=== PATIENT | female | born 1975 | race African-American/Black ===

== ENCOUNTER 2017-03-05 22:06 | Emergency (ER) | payer MEDICAID ==
[~2017-03-05] VITALS: Ht 160 cm; Wt 59.9 kg
[~2017-03-05 22:06] MED LIST: AZITHROMYCIN250 MG ORAL; CORTISPORIN EAR10 ML LEFT EAR; IBUPROFEN600 MG ORAL; NORCO 5-325 TA1 EACH ORAL; PREDNISONE
[2017-03-05] MEDS ORDERED: NKM (22:21)
[2017-03-05] MEDS ORDERED: ZYRTEC10 MG ORAL (22:31)
[2017-03-05] MEDS ORDERED: CORTISPORIN EAR10 ML OTIC (22:31)
[2017-03-05] MEDS ORDERED: AMOXICILLIN500 MG ORAL (22:31)
[2017-03-05] MEDS ORDERED: IBUPROFEN600 MG ORAL (22:31)
[2017-03-05 22:40] VITALS: BP 122/77
--- NOTE | 2017-03-06 03:54 | Emergency Room Report ---
History of Present Illness General Chief Complaint: Earache Source: Patient Present Illness HPI Patient presents with complaints of left ear pain Pain is 6/10 Denies any fevers She has pain with touching the ear Denies any fall or trauma denies any foreign body Denies any change with position Denies any change in hearing Denies any recent water contact Allergies: Coded Allergies: CODEINE (Verified Allergy, Unknown, 03/05/17) Patient History Past Medical History: see triage record Pertinent Family History: none Last Menstrual Period: 02/06/17 Now: No Reviewed Nursing Documentation: PMH: Agreed, PSxH: Agreed Nursing Documentation-PMH Past Medical History: No History, Except For Hx Cardiac Problems: No Hx Hypertension: No Hx Pacemaker: No Hx Asthma: No Hx COPD: No Hx Diabetes: No Hx Cancer: No Hx Gastrointestinal Problems: No Hx Dialysis: No Hx Neurological Problems: No Hx Cerebrovascular Accident: No Hx Seizures: No Review of Systems All Other Systems: negative except mentioned in HPI Physical Exam Vital Signs Date Time Temp Pulse Resp B/P Pulse Ox O2 Delivery O2 Flow Rate FiO2 03/05/17 22:17 98.1 73 16 122/77 97 Room Air Sp02 EP Interpretation: reviewed, normal General Appearance: well appearing, no apparent distress Head: normocephalic, atraumatic Eyes: bilateral eye EOMI, bilateral eye PERRL ENT: normal pharynx - Without any mastoid tenderness, no angioedema, other - Patient has inflammation in edema in the left canal tympanic membrane is also edematous and erythematous, findings are in line with otitis media and externa without any evidence of foreign body or perforation Neck: supple Respiratory: lungs clear Musculoskeletal: normal inspection Neurologic: normal inspection, alert, oriented x3 Skin: normal color, no rash Lymphatic: no adenopathy Medical Decision Making Diagnostic Impression: Primary Impression: Otitis externa Additional Impression: otitis media ER Course Patient has findings of otitis media and externa Is provided medication appropriate for both At this time stable for close outpatient followup Last Vital Signs Date Time Temp Pulse Resp B/P Pulse Ox O2 Delivery O2 Flow Rate FiO2 03/05/17 22:40 98.1 16 122/77 97 Room Air 03/05/17 22:17 73 Status: improved Disposition: HOME, SELF-CARE Condition: Stable Scripts Ibuprofen* (MOTRIN*) 600 Mg Tablet 600 MG ORAL Q8H Y for For Pain, #20 TAB 0 Refills Prov: JOSÉ MIGUEL RUSSELL D.O. 03/05/17 Cetirizine Hcl* (ZYRTEC*) 10 Mg Tablet 10 MG ORAL DAILY for 7 Days, #14 TAB 0 Refills Prov: JOSÉ MIGUEL RUSSELL D.O. 03/05/17 Amoxicillin* (AMOXIL*) 500 Mg Capsule 500 MG ORAL THREE TIMES A DAY, #21 CAP Prov: JOSÉ MIGUEL RUSSELL D.O. 03/05/17 Neomycin/Polymyxin B Sulf/Hc* (CORTISPORIN EAR SOLUTION*) 10 Ml Solution 2 DROP OTIC FOUR TIMES A DAY for 7 Days, #1 EA Instill in affected ear as directed for 7 days Prov: JOSÉ MIGUEL RUSSELL D.O. 03/05/17 [facility],REFERRING (PCP) Patient Instructions: Otitis Externa, Evrr-md-Cnuk, Otitis Media, Adult Additional Instructions: Patient is provided with the discharge instructions notified to follow up with primary doctor in the next 2-3 days otherwise return to the er with any worsening symptoms. Please note that this report is being documented using [employer] technology. This can lead to erroneous entry secondary to incorrect interpretation by the dictating instrument. JOSÉ MIGUEL RUSSELL D.O. March 06, 2017 03:54
== END 2017-03-05 22:40 | disposition home or self-care (01) ==
LOC: EMR 22:34
DX: H60.92 Unspecified otitis externa, left ear (principal); H66.92 Otitis media, unspecified, left ear; Z88.6 Allergy status to analgesic agent
CPT/HCPCS: 99284

== ENCOUNTER 2018-08-13 21:59 | Emergency (ER) | payer MEDICAID ==
[~2018-08-13] VITALS: Ht 157.5 cm; Wt 61.2 kg
[~2018-08-13 21:59] MED LIST changes: +AMOXICILLIN500 MG ORAL; +CORTISPORIN EAR10 ML OTIC; +NKM; +ZYRTEC10 MG ORAL
--- NOTE | 2018-08-13 22:28 | Emergency Room Report ---
History of Present Illness General Chief Complaint: Abdominal Pain Source: Patient Present Illness HPI Is a 43-year-old female with no past buccal history. She presents with chief complaint of left lower quadrant pain is been there for last 3 days. Radiate to the groin. No dysuria frequency. No nausea no vomiting. Burning sensation. Pain is 7 out of 10. Never had this problem before. No rash. Nothing made it better. Nothing made it worse. Allergies: Coded Allergies: CODEINE (Verified Allergy, Unknown, 03/05/17) Patient History Past Medical History: see triage record, old chart reviewed Past Surgical History: none Pertinent Family History: none Social History: Denies: smoking Last Menstrual Period: 1 Now: No Immunizations: other Reviewed Nursing Documentation: PMH: Agreed; PSxH: Agreed Nursing Documentation-PMH Past Medical History: No Stated History Hx Cardiac Problems: No Hx Hypertension: No Hx Pacemaker: No Hx Asthma: No Hx COPD: No Hx Diabetes: No Hx Cancer: No Hx Gastrointestinal Problems: No Hx Dialysis: No Hx Neurological Problems: No Hx Cerebrovascular Accident: No Hx Seizures: No Review of Systems Eye: Denies: eye pain, blurred vision ENT: Denies: ear pain, nose congestion, throat swelling Respiratory: Denies: cough, shortness of breath Cardiovascular: Denies: chest pain, palpitations Gastrointestinal: Reports: abdominal pain; Denies: diarrhea, nausea, vomiting Musculoskeletal: Denies: back pain, joint pain Skin: Denies: rash Neurological: Denies: headache, numbness Endocrine: Denies: increased thirst, increased urine Hematologic/Lymphatic: Denies: easy bruising All Other Systems: negative except mentioned in HPI Physical Exam Vital Signs Date Time Temp Pulse Resp B/P (MAP) Pulse Ox O2 Delivery O2 Flow Rate FiO2 08/13/18 22:12 98.8 88 16 125/82 97 Room Air 98.8 vitals normal Sp02 EP Interpretation: reviewed, normal General Appearance: well appearing, no apparent distress, alert Head: normocephalic, atraumatic Eyes: bilateral eye PERRL, bilateral eye EOMI ENT: hearing grossly normal, normal pharynx Neck: full range of motion, supple, no meningismus Respiratory: chest non-tender, lungs clear, normal breath sounds Cardiovascular #1: regular rate, rhythm, no murmur Gastrointestinal: normal bowel sounds, no mass, no organomegaly, no bruit, non- distended, tenderness - llq Musculoskeletal: back normal, gait/station normal, normal range of motion Psychiatric: mood/affect normal Skin: warm/dry Medical Decision Making Diagnostic Impression: Primary Impression: Abdominal pain Qualified Codes: R10.32 - Left lower quadrant pain ER Course Patient presents with left lower quadrant abdominal pain. She describes a burning sensation. His been trying to lose weight and been taking [employer] classes. This may be a muscle strain. No evidence of an acute abdomen. No evidence of an infection. We'll discharge home. Lab Results Impression labs normal CT/MRI/US Diagnostic Results CT/MRI/US Diagnostic Results : Imaging Test Ordered: CT abd and pelvis Impression Read by radiologist. Gallstones. no acute process. Last Vital Signs Date Time Temp Pulse Resp B/P (MAP) Pulse Ox O2 Delivery O2 Flow Rate FiO2 08/13/18 22:12 98.8 88 16 125/82 97 Room Air 98.8 Status: improved Disposition: HOME, SELF-CARE Condition: Stable Scripts Ibuprofen* (MOTRIN*) 600 Mg Tablet 600 MG ORAL THREE TIMES A DAY, #30 TAB 0 Refills Prov: Bernardo Solis MD 08/14/18 Additional Instructions: Follow-up with your doctor in 7 days. Return if symptom worsen. Bernardo Solis MD Aug 13, 2018 22:28
[2018-08-13 22:30] VITALS: BP 115/76
[2018-08-13] MEDS ORDERED: Ketorolac 30mg Inj IV ONE (22:30)
[2018-08-13 22:50] LABS: BASOPHILS % (AUTO) 1.7 % (0.0-2.0); EOSINOPHILS % (AUTO) 3.4 % (0.0-3.0); HEMATOCRIT 41.5 % (37.0-47.0); HEMOGLOBIN 14.3 G/DL (12.0-16.0); LYMPHOCYTES % (AUTO) 49.5 % (20.0-45.0); MEAN CORPUSCULAR VOLUME 85 FL (80-99); MONOCYTES % (AUTO) 8.7 % (1.0-10.0); NEUTROPHILS % (AUTO) 36.7 % (45.0-75.0); PLATELET COUNT 254 K/UL (150-450); RED BLOOD COUNT 4.89 M/UL (4.20-5.40); RED CELL DISTRIBUTION WIDTH 10.8 % (11.6-14.8); WHITE BLOOD COUNT 4.5 K/UL (4.8-10.8)
[2018-08-13 22:52] LABS: APPEARANCE,URINE CLEAR; BILIRUBIN, URINE NEGATIVE (NEGATIVE); COLOR,URINE PALE YELLOW; GLUCOSE, URINE (UA) NEGATIVE (NEGATIVE); KETONES,URINE NEGATIVE (NEGATIVE); LEUKOCYTE ESTERASE ,URINE NEGATIVE (NEGATIVE); NITRITE,URINE NEGATIVE (NEGATIVE); PH,URINE 8 (4.5-8.0); PROTEIN,URINE NEGATIVE (NEGATIVE); UROBILINOGEN,URINE NORMAL MG/DL (0.0-1.0)
[2018-08-13 22:56] LABS: ANION GAP 8 mmol/L (5-15); BLOOD UREA NITROGEN 7 mg/dL (7-18); CALCIUM 9.4 MG/DL (8.5-10.1); CARBON DIOXIDE 29 MMOL/L (21-32); CHLORIDE 104 MMOL/L (98-107); CREATININE 0.5 MG/DL (0.55-1.30); POTASSIUM 3.4 MMOL/L (3.5-5.1); SODIUM 141 MMOL/L (136-145)
[2018-08-13 23:00] LABS: ALANINE AMINOTRANSFERASE 36 U/L (12-78); ALBUMIN/GLOBULIN RATIO 0.9 (1.0-2.7); ALKALINE PHOSPHATASE 80 U/L (46-116); ASPARTATE AMINO TRANSFERASE 21 U/L (15-37); BILIRUBIN,TOTAL 0.2 MG/DL (0.2-1.0)
[2018-08-13 23:59] VITALS: BP 120/80
[2018-08-14] MEDS ORDERED: IBUPROFEN600 MG ORAL (00:33)
[2018-08-14 00:45] VITALS: BP 111/79
[2018-08-14 00:50] VITALS: BP 120/80
--- NOTE | 2018-08-14 10:15 | Diagnostic Imaging Report ---
Indication: Abdominal pain Technique: Continuous helical transaxial imaging of the abdomen and pelvis was obtained from the lung bases to the pubic symphysis. No intravenous contrast was administered. Coronal 2-D reformats were also obtained. Automatic Exposure Control was utilized. Total Dose length Product (DLP): 621.[address] Dose Index Volume (CTDIvol): 12.77 mGy Comparison: 01/12/2006 Findings: The lung bases are clear. Small gallstone noted. Gallbladder is otherwise unremarkable and nondilated. No hydronephrosis or renal stones are identified. No free fluid identified. Slightly distended loops of the terminal ileum noted in the right lower quadrant. Consider enteritis or ileus. The appendix is not seen but there are no secondary signs of acute appendicitis. Uterus noted. Urinary bladder is unremarkable. IMPRESSION: Dilated fluid-filled bowel the right lower quadrant. Consider enteritis/ileus. Correlate clinically. Gallstone. Partially agree with the preliminary reading by [employer]. Some discrepancies are noted. The CT scanner at [facility] is accredited by the [employer] and the scans are performed using dose optimization techniques as appropriate to a performed exam including Automatic Exposure control.
== END 2018-08-14 00:50 | disposition home or self-care (01) ==
LOC: EMR 22:30
DX: R10.32 Left lower quadrant pain (principal)
CPT/HCPCS: 36415; 74176; 80053; 81003; 83690; 85025; 96361; 96374; 99284; J1885